=== PATIENT | male | born 1955 | race Caucasian/White ===

== ENCOUNTER → 2024-03-23 | Outpatient (CLI) | payer MEDICARE, BC, SELFPAY ==
[2024-03-23 17:34] LABS: Basophils # (Auto) 0.1 Thou/mm3 (0.0-0.2); Basophils % (Auto) 2 % (0-2.5); Eosinophils # (Auto) 0.2 Thou/mm3 (0.0-0.5); Eosinophils % (Auto) 8 % (0-10); Hematocrit 25.6 % (41.0-53.0); Immature Granulocytes % (Auto) 0 % (0-0); Immature Granulocytes Auto 0.01 Thou/mm3 (0.00-0.00); Lymphocytes # (Auto) 0.7 Thou/mm3 (1.0-4.8); Lymphocytes % (Auto) 28 % (10-50); Mean Corpuscular HGB Conc 32.4 g/dl (31.0-37.0); Mean Corpuscular Hemoglobin 26.2 pg (25.0-35.0); Mean Corpuscular Volume 81 fL (80-100); Monocytes # (Auto) 0.3 Thou/mm3 (0.0-0.8); Monocytes % (Auto) 13 % (0-12); Neutrophils # (Auto) 1.2 Thou/mm3 (1.8-7.7); Neutrophils % (Auto) 49 % (37-80); Nucleated Red Blood Cell % 0 /100 WBC (0); Platelet Count 100 Thou/mm3 (140-440); RDW Standard Deviation 47.2 fL (35.1-43.9); Red Blood Count 3.17 Miln/mm3 (4.50-5.90)
[2024-03-23 17:35] LABS: Hemoglobin 8.3 g/dL (13.5-16.0); White Blood Count 2.5 Thou/mm3 (3.8-10.6)
[2024-03-23 17:50] LABS: Path Review Blood Smear Sent to Pathologist
[2024-03-23 17:51] LABS: Alanine Aminotransferase 17 U/L (10-49); Albumin, Serum 3.8 gm/dL (3.4-4.8); Albumin/Globulin Ratio 1.9 (1.2-2.2); Alkaline Phosphatase 70 U/L (46-116); Anion Gap 5 (7-16); Aspartate Amino Transferase 33 U/L (0-34); BUN/Creatinine Ratio 16 Ratio (12-20); Bilirubin,Total 0.6 mg/dL (0.3-1.2); Blood Urea Nitrogen 14 mg/dL (9-23); Calcium 8.7 mg/dL (8.3-10.6); Calcium (Corrected) 8.9 mg/dL (8.5-10.1); Carbon Dioxide 24.7 mMol/L (20.0-31.0); Chloride 99 mMol/L (98-107); Creatinine (Component) 0.9 mg/dL (0.6-1.3); Glucose 84 mg/dL (74-106); LDH (Lactate Dehydrogenase) 98 U/L (120-246); Osmolality,Calculated 258 (275-295); Potassium 4.5 mMol/L (3.4-5.1); Sodium 129 mMol/L (136-145); Thyroid Stimulating Hormone 1.93 uIU/mL (0.55-4.78); Total Protein 5.8 gm/dL (5.7-8.2); eGFR > 60 See Note
[2024-03-23 17:54] LABS: Vitamin B12 847 pg/mL (211-911)
[2024-03-23 21:53] LABS: Ferritin 5 ng/mL (10.5-307.3); Total Iron Binding Capacity 404 mcg/dL (250-425)
[2024-03-23 22:02] LABS: Iron 31 mcg/dL (65-175); Percent Iron Saturation 7 % (20-55); Unsaturated Iron Binding 373 (225-295)
== END | disposition home or self-care (01) ==
LOC: COPL 16:04
PROVIDERS: PCP Family Medicine; Referring Provider Specialist; Visit Provider Specialist
DX: Z01.89 Encounter for other specified special examinations (principal)
CPT/HCPCS: 36415; 80053; 82607; 82728; 83540; 83550; 83615; 84443; 85025

== ENCOUNTER → 2024-04-21 | Outpatient (CLI) | payer MEDICARE, BC, SELFPAY ==
[2024-04-21 17:43] LABS: Basophils % (Auto) 2 % (0-2.5); Eosinophils # (Auto) 0.1 Thou/mm3 (0.0-0.5); Eosinophils % (Auto) 4 % (0-10); Hematocrit 23.8 % (41.0-53.0); Immature Granulocytes % (Auto) 1 % (0-0); Immature Granulocytes Auto 0.02 Thou/mm3 (0.00-0.00); Immature Reticulocyte Fraction 9.8 % (2.3-13.4); Lymphocytes # (Auto) 0.6 Thou/mm3 (1.0-4.8); Lymphocytes % (Auto) 26 % (10-50); Mean Corpuscular HGB Conc 32.8 g/dl (31.0-37.0); Mean Corpuscular Hemoglobin 26.6 pg (25.0-35.0); Mean Corpuscular Volume 81 fL (80-100); Monocytes # (Auto) 0.3 Thou/mm3 (0.0-0.8); Monocytes % (Auto) 13 % (0-12); Neutrophils # (Auto) 1.2 Thou/mm3 (1.8-7.7); Neutrophils % (Auto) 55 % (37-80); Nucleated Red Blood Cell % 0 /100 WBC (0); Platelet Count 122 Thou/mm3 (140-440); RDW Standard Deviation 48.3 fL (35.1-43.9); Red Blood Count 2.93 Miln/mm3 (4.50-5.90); Reticulocyte % (Auto) 2.2 % (0.5-1.5); Reticulocyte Absolute Auto 63.9 Biln/L (25.0-75.0); Reticulocyte Hgb Content 26.6 pg (28.0-35.0)
[2024-04-21 17:54] LABS: Albumin, Serum 4.1 gm/dL (3.4-4.8); Anion Gap 6 (7-16); BUN/Creatinine Ratio 20 Ratio (12-20); Blood Urea Nitrogen 20 mg/dL (9-23); Calcium 8.8 mg/dL (8.3-10.6); Calcium (Corrected) 8.8 mg/dL (8.5-10.1); Carbon Dioxide 25.6 mMol/L (20.0-31.0); Chloride 95 mMol/L (98-107); Glucose 107 mg/dL (74-106); Osmolality,Calculated 257 (275-295); Phosphorous 3.5 mg/dL (2.4-5.1); Potassium 4.5 mMol/L (3.4-5.1); Sodium 127 mMol/L (136-145); eGFR > 60 See Note
[2024-04-21 18:15] LABS: Hemoglobin 7.8 g/dL (13.5-16.0)
[2024-04-21 18:16] LABS: White Blood Count 2.1 Thou/mm3 (3.8-10.6)
[2024-04-21 18:20] LABS: Ferritin 10 ng/mL (10.5-307.3); Total Iron Binding Capacity 419 mcg/dL (250-425)
[2024-04-21 20:56] LABS: Iron 25 mcg/dL (65-175); Percent Iron Saturation 5 % (20-55); Unsaturated Iron Binding 394 (225-295)
[2024-04-26 06:24] LABS: Erythropoietin (EPO)* 58.4 mIU/mL (2.6-18.5)
== END | disposition home or self-care (01) ==
LOC: COPL 16:21
PROVIDERS: PCP Family Medicine; Referring Provider Specialist; Visit Provider Specialist
DX: D61.818 Other pancytopenia (principal); Z51.11 Encounter for antineoplastic chemotherapy
CPT/HCPCS: 36415; 80069; 82668; 82728; 83540; 83550; 85025; 85046

== ENCOUNTER → 2024-04-27 | Outpatient (CLI) | payer MEDICARE, BC, SELFPAY | END | disposition home or self-care (01) | PROVIDERS: PCP Family Medicine; Referring Provider Nurse Practitioner Family; Visit Provider Nurse Practitioner Family | DX: D61.818 Other pancytopenia (principal) | CPT/HCPCS: 36415; 82784; 84155; 84165 ==

== ENCOUNTER → 2024-04-28 | Outpatient (CLI) | payer MEDICARE, BC, SELFPAY ==
[2024-05-06 03:02] LABS: Albumin 3.5 g/dL (3.8-4.8); Alpha-1-Globulin 0.3 g/dL (0.2-0.3); Alpha-2-Globulin 0.7 g/dL (0.5-0.9); Beta-1-Globulin 0.5 g/dL (0.4-0.6); Beta-2-globulin 0.3 g/dL (0.2-0.5); Gamma Globulin 0.8 g/dL (0.8-1.7); Immunoglobulin A 214 mg/dL (70-320); Immunoglobulin G 897 mg/dL (600-1540)
[2024-05-06 06:16] LABS: Immunoglobulin M 59 mg/dL (50-300); Protein, total, serum 6.2 g/dL (6.1-8.1)
== END | disposition home or self-care (01) ==
LOC: COPL 16:42
PROVIDERS: PCP Nurse Practitioner Family; Referring Provider Nurse Practitioner Family; Visit Provider Nurse Practitioner Family
DX: D61.818 Other pancytopenia (principal)
CPT/HCPCS: 36415; 82784; 84155; 84165

== ENCOUNTER → 2024-05-13 | Outpatient (CLI) | payer MEDICARE, BC, SELFPAY ==
--- NOTE | 2024-05-13 15:39 | XR_ITS ---
Examination: Shoulder,left, 3 views Technique: Shoulder AP internal rotation, AP external rotation, Y view shoulder, 3 views Exam date and time :May 13, 2024 1555 hours INDICATIONS: Onset left shoulder pain beginning 9 months ago. FINDINGS: Moderate osteopenia Advanced narrowing glenohumeral joint No fracture or shoulder dislocation IMPRESSION: Advanced osteoarthritis glenohumeral joint
[2024-05-20 06:29] LABS: Homocysteine* 13.8 umol/L (<11.4); Methylmalonic Acid, GC/MS/MS* 167 nmol/L (69-390)
== END | disposition home or self-care (01) ==
PROVIDERS: PCP Family Medicine; Referring Provider Nurse Practitioner Family; Visit Provider Nurse Practitioner Family
DX: M19.012 Primary osteoarthritis, left shoulder (principal); D64.9 Anemia, unspecified
CPT/HCPCS: 36415; 73030; 83090; 83921

== ENCOUNTER → 2024-06-09 | Outpatient (CLI) | payer MEDICARE, BC, SELFPAY ==
[2024-06-09 16:29] LABS: Basophils % (Auto) 0 % (0-2.5); Eosinophils # (Auto) 0.1 Thou/mm3 (0.0-0.5); Eosinophils % (Auto) 2 % (0-10); Hematocrit 29.2 % (41.0-53.0); Immature Granulocytes % (Auto) 1 % (0-0); Immature Granulocytes Auto 0.03 Thou/mm3 (0.00-0.00); Immature Reticulocyte Fraction 14.3 % (2.3-13.4); Lymphocytes # (Auto) 0.7 Thou/mm3 (1.0-4.8); Lymphocytes % (Auto) 16 % (10-50); Mean Corpuscular HGB Conc 29.8 g/dl (31.0-37.0); Mean Corpuscular Volume 87 fL (80-100); Monocytes # (Auto) 0.6 Thou/mm3 (0.0-0.8); Monocytes % (Auto) 12 % (0-12); Neutrophils # (Auto) 3.3 Thou/mm3 (1.8-7.7); Neutrophils % (Auto) 70 % (37-80); Nucleated Red Blood Cell % 0 /100 WBC (0); Platelet Count 81 Thou/mm3 (140-440); RDW Standard Deviation 52.2 fL (35.1-43.9); Red Blood Count 3.34 Miln/mm3 (4.50-5.90); Reticulocyte % (Auto) 1.5 % (0.5-1.5); Reticulocyte Absolute Auto 50.8 Biln/L (25.0-75.0); Reticulocyte Hgb Content 27.7 pg (28.0-35.0); White Blood Count 4.8 Thou/mm3 (3.8-10.6)
[2024-06-09 16:36] LABS: Hemoglobin 8.7 g/dL (13.5-16.0)
[2024-06-09 17:03] LABS: Alanine Aminotransferase 60 U/L (10-49); Albumin, Serum 3.6 gm/dL (3.4-4.8); Albumin/Globulin Ratio 1.5 (1.2-2.2); Alkaline Phosphatase 66 U/L (46-116); Anion Gap 6 (7-16); Aspartate Amino Transferase 48 U/L (0-34); BUN/Creatinine Ratio 29 Ratio (12-20); Bilirubin,Total 0.5 mg/dL (0.3-1.2); Blood Urea Nitrogen 29 mg/dL (9-23); Calcium 8.6 mg/dL (8.3-10.6); Calcium (Corrected) 8.9 mg/dL (8.5-10.1); Carbon Dioxide 28.6 mMol/L (20.0-31.0); Chloride 105 mMol/L (98-107); Globulin 2.4 gm/dL (2.3-3.5); Glucose 107 mg/dL (74-106); Osmolality,Calculated 285 (275-295); Potassium 4.7 mMol/L (3.4-5.1); Sodium 140 mMol/L (136-145); eGFR > 60 See Note
== END | disposition home or self-care (01) ==
LOC: COPL 15:48
PROVIDERS: PCP Family Medicine; Referring Provider Specialist; Visit Provider Specialist
DX: D61.818 Other pancytopenia (principal)
CPT/HCPCS: 36415; 80053; 85025; 85046

== ENCOUNTER → 2024-06-30 | Outpatient (CLI) | payer MEDICARE, SELFPAY ==
--- NOTE | 2024-06-30 09:30 | XR_ITS ---
Examination: CT abdomen, without intravenous contrast. CT pelvis, without intravenous contrast. CT abdomen, with intravenous contrast. CT pelvis, with intravenous contrast. 2-D sagittal coronal reconstructions. Date and time of exam:June 30, 2024 0947 hours INDICATIONS: Diagnosis pancytopenia 5 months CTDI: vol (mGy) 48.8 DLP: (mGycm) 2628 Technique: Multiple 3.0 axial images of the abdomen and pelvis without intravenous contrast, 3.0 mm slice thickness. Multiple 3.0 postcontrast images abdomen and pelvis also obtained, post intravenous injection 60 cc [id number] 2-D sagittal and coronal reconstructions. Low dose protocols were performed. One or more of the following dose reduction techniques were used; automated exposure control, adjustment of the mA and/or KV according to patient size, use of iterative reconstruction technique. Findings: Atelectasis in the lower lung zones Cirrhosis, liver nodular in contour, no focal liver lesions Tiny gallstones Splenomegaly 16 cm No pancreatic or adrenal mass No renal or ureteral calculi, no hydronephrosis No bowel obstruction 4.4 cm umbilical hernia defect Colonic diverticulosis No pericecal inflammatory change Contracted urinary bladder Transverse prostate dimension 3.4 cm Severe osteopenia with advanced disc narrowing L1-L2 IMPRESSION: Cirrhosis Significant splenomegaly Cholelithiasis Large umbilical hernia defect containing fat
[2024-06-30 09:49] LABS: Basophils % (Auto) 1 % (0-2.5); Eosinophils % (Auto) 2 % (0-10); Hematocrit 27.5 % (41.0-53.0); Immature Granulocytes % (Auto) 0 % (0-0); Immature Granulocytes Auto 0.01 Thou/mm3 (0.00-0.00); Lymphocytes # (Auto) 0.5 Thou/mm3 (1.0-4.8); Lymphocytes % (Auto) 21 % (10-50); Mean Corpuscular HGB Conc 30.2 g/dl (31.0-37.0); Mean Corpuscular Hemoglobin 25.5 pg (25.0-35.0); Mean Corpuscular Volume 85 fL (80-100); Monocytes # (Auto) 0.3 Thou/mm3 (0.0-0.8); Monocytes % (Auto) 10 % (0-12); Neutrophils # (Auto) 1.7 Thou/mm3 (1.8-7.7); Neutrophils % (Auto) 67 % (37-80); Nucleated Red Blood Cell % 0 /100 WBC (0); Platelet Count 89 Thou/mm3 (140-440); RDW Standard Deviation 49.2 fL (35.1-43.9); Red Blood Count 3.25 Miln/mm3 (4.50-5.90)
[2024-06-30 09:57] LABS: Glucose Estimated Average 148 mg/dL (80-131); Hemoglobin A1C 6.8 % Hgb (4.8-6.0)
[2024-06-30 10:04] LABS: Hemoglobin 8.3 g/dL (13.5-16.0); White Blood Count 2.6 Thou/mm3 (3.8-10.6)
[2024-06-30 10:09] LABS: Folate 18.88 ng/mL (>5.38); PSA Medicare Annual Scrn 0.02 ng/mL (0-4.00)
[2024-06-30 10:17] LABS: Alanine Aminotransferase 40 U/L (10-49); Albumin, Serum 3.7 gm/dL (3.4-4.8); Albumin/Globulin Ratio 1.8 (1.2-2.2); Alkaline Phosphatase 64 U/L (46-116); Anion Gap 9 (7-16); Aspartate Amino Transferase 33 U/L (0-34); BUN/Creatinine Ratio 23 Ratio (12-20); Bilirubin,Total 0.6 mg/dL (0.3-1.2); Blood Urea Nitrogen 23 mg/dL (9-23); Calcium 8.9 mg/dL (8.3-10.6); Calcium (Corrected) 9.1 mg/dL (8.5-10.1); Carbon Dioxide 28.1 mMol/L (20.0-31.0); Cardiac Risk Estimate 1.8 RATIO (4.0-6.7); Chloride 106 mMol/L (98-107); Cholesterol 170 mg/dL (132-200); Globulin 2.1 gm/dL (2.3-3.5); Glucose 93 mg/dL (74-106); HDL Cholesterol 92 mg/dL (40-60); LDL Cholesterol,Calculated 69 mg/dL (0-130); Osmolality,Calculated 288 (275-295); Potassium 4.4 mMol/L (3.4-5.1); Sodium 143 mMol/L (136-145); Total Protein 5.8 gm/dL (5.7-8.2); Triglycerides 47 mg/dL (30-150); eGFR > 60 See Note
[2024-07-05 06:31] LABS: Homocysteine* 11.9 umol/L (<11.4); Methylmalonic Acid, GC/MS/MS* 204 nmol/L (69-390)
== END | disposition home or self-care (01) ==
LOC: CCTX 08:11 → COPL 08:45
PROVIDERS: PCP Family Medicine; Referring Provider Specialist; Visit Provider Radiology Diagnostic Radiology
DX: K74.60 Unspecified cirrhosis of liver (principal); R16.1 Splenomegaly, not elsewhere classified; K80.20 Calculus of gallbladder without cholecystitis without obstruction; K42.9 Umbilical hernia without obstruction or gangrene; D52.9 Folate deficiency anemia, unspecified; I10 Essential (primary) hypertension; E11.9 Type 2 diabetes mellitus without complications; Z12.5 Encounter for screening for malignant neoplasm of prostate
CPT/HCPCS: 36415; 74178; 80053; 80061; 82746; 83036; 83090; 83921; 84153; 84443; 85025; A4649; Q9967; G0103

== ENCOUNTER → 2024-08-02 | Outpatient (CLI) | payer MEDICARE, SELFPAY ==
[2024-08-02 16:58] LABS: Basophils % (Auto) 1 % (0-2.5); Eosinophils # (Auto) 0.1 Thou/mm3 (0.0-0.5); Eosinophils % (Auto) 5 % (0-10); Hematocrit 28.8 % (41.0-53.0); Hemoglobin 8.9 g/dL (13.5-16.0); Immature Granulocytes % (Auto) 1 % (0-0); Immature Granulocytes Auto 0.03 Thou/mm3 (0.00-0.00); Lymphocytes # (Auto) 0.5 Thou/mm3 (1.0-4.8); Lymphocytes % (Auto) 19 % (10-50); Mean Corpuscular HGB Conc 30.9 g/dl (31.0-37.0); Mean Corpuscular Hemoglobin 25.9 pg (25.0-35.0); Mean Corpuscular Volume 84 fL (80-100); Monocytes # (Auto) 0.3 Thou/mm3 (0.0-0.8); Monocytes % (Auto) 9 % (0-12); Neutrophils # (Auto) 1.8 Thou/mm3 (1.8-7.7); Neutrophils % (Auto) 65 % (37-80); Nucleated Red Blood Cell % 0 /100 WBC (0); Platelet Count 92 Thou/mm3 (140-440); RDW Standard Deviation 51.9 fL (35.1-43.9); Red Blood Count 3.43 Miln/mm3 (4.50-5.90)
[2024-08-02 17:04] LABS: White Blood Count 2.8 Thou/mm3 (3.8-10.6)
== END | disposition home or self-care (01) ==
LOC: COPL 16:08
PROVIDERS: PCP Family Medicine; Referring Provider Specialist; Visit Provider Specialist
DX: D61.818 Other pancytopenia (principal)
CPT/HCPCS: 36415; 85025

== ENCOUNTER → 2024-09-21 | Outpatient (CLI) | payer MEDICARE, BC, SELFPAY ==
[2024-09-21 13:42] LABS: Basophils % (Auto) 0 % (0-2.5); Eosinophils # (Auto) 0.1 Thou/mm3 (0.0-0.5); Eosinophils % (Auto) 2 % (0-10); Hematocrit 34.5 % (41.0-53.0); Immature Granulocytes % (Auto) 1 % (0-0); Immature Granulocytes Auto 0.06 Thou/mm3 (0.00-0.00); Immature Reticulocyte Fraction 12.1 % (2.3-13.4); Lymphocytes # (Auto) 0.5 Thou/mm3 (1.0-4.8); Lymphocytes % (Auto) 9 % (10-50); Mean Corpuscular HGB Conc 31.9 g/dl (31.0-37.0); Mean Corpuscular Hemoglobin 28.1 pg (25.0-35.0); Mean Corpuscular Volume 88 fL (80-100); Monocytes # (Auto) 0.4 Thou/mm3 (0.0-0.8); Monocytes % (Auto) 8 % (0-12); Neutrophils # (Auto) 4.6 Thou/mm3 (1.8-7.7); Neutrophils % (Auto) 80 % (37-80); Nucleated Red Blood Cell % 0 /100 WBC (0); Platelet Count 92 Thou/mm3 (140-440); RDW Standard Deviation 52.3 fL (35.1-43.9); Red Blood Count 3.92 Miln/mm3 (4.50-5.90); Reticulocyte % (Auto) 1.4 % (0.5-1.5); Reticulocyte Absolute Auto 55.7 Biln/L (25.0-75.0); Reticulocyte Hgb Content 34.6 pg (28.0-35.0); White Blood Count 5.8 Thou/mm3 (3.8-10.6)
[2024-09-21 13:58] LABS: Ferritin 55 ng/mL (10.5-307.3); Iron 53 mcg/dL (65-175); Total Iron Binding Capacity 366 mcg/dL (250-425)
== END | disposition home or self-care (01) ==
LOC: COPL 13:06
PROVIDERS: PCP Family Medicine; Referring Provider Specialist; Visit Provider Specialist
DX: Z51.11 Encounter for antineoplastic chemotherapy (principal)
CPT/HCPCS: 36415; 82728; 83540; 83550; 85025; 85046

== ENCOUNTER → 2025-01-25 | Outpatient (CLI) | payer MEDICARE, SELFPAY ==
--- NOTE | 2025-01-25 11:01 | EKG_ITS ---
[facility] Test Date: 2025-01-25 Pat Name: MATT CASTLE Department: Room: - Gender: Male Field Services Analyst: ANNABEL : 1955 Requested By: Margarita Vizcaino Order Number: [id number] Reading MD: Margarita Vizcaino Measurements Intervals [place] Rate: 65 P: -64 OR: 145 QRS: -33 QRSD: 117 T: 29 QT: 414 QTc: 431 Interpretive Statements ECTOPIC ATRIAL RHYTHM MARKED LEFT AXIS DEVIATION [QRS AXIS < -30] LOW QRS VOLTAGE IN PRECORDIAL LEADS [QRS DEFLECTION < 1.0 mV IN CHEST LEADS] POSSIBLE ANTERIOR MYOCARDIAL INFARCTION , PROBABLY OLD [30 ms Q WAVE IN V3/V4, OR R < 0.2 mV IN V4] Compared to ECG 08/24/2023 12:11:47 Ectopic atrial rhythm now present Left-axis deviation now present Low QRS voltage now present Myocardial infarct finding now present Sinus bradycardia no longer present Ventricular premature complex(es) no longer present Intraventricular conduction delay no longer present T-wave abnormality no longer present /store/S0/[id number].pdf
[2025-01-25 11:15] LABS: Basophils # (Auto) 0.1 Thou/mm3 (0.0-0.2); Basophils % (Auto) 2 % (0-2.5); Eosinophils # (Auto) 0.2 Thou/mm3 (0.0-0.5); Eosinophils % (Auto) 5 % (0-10); Hematocrit 36.3 % (41.0-53.0); Hemoglobin 11.6 g/dL (13.5-16.0); Immature Granulocytes Auto 0.02 Thou/mm3 (0.00-0.00); Lymphocytes # (Auto) 0.7 Thou/mm3 (1.0-4.8); Lymphocytes % (Auto) 20 % (10-50); Mean Corpuscular HGB Conc 32.0 g/dl (31.0-37.0); Mean Corpuscular Hemoglobin 29.7 pg (25.0-35.0); Mean Corpuscular Volume 93 fL (80-100); Monocytes # (Auto) 0.3 Thou/mm3 (0.0-0.8); Monocytes % (Auto) 10 % (0-12); Neutrophils # (Auto) 2.2 Thou/mm3 (1.8-7.7); Neutrophils % (Auto) 64 % (37-80); Nucleated Red Blood Cell # 0.00 Thou/mm3 (0.00-0.00); Nucleated Red Blood Cell % 0 /100 WBC (0); Platelet Count 83 Thou/mm3 (140-440); RDW Standard Deviation 48.5 fL (35.1-43.9); Red Blood Count 3.90 Miln/mm3 (4.50-5.90); White Blood Count 3.4 Thou/mm3 (3.8-10.6)
[2025-01-25 11:22] LABS: Glucose Estimated Average 134 mg/dL (80-131); Hemoglobin A1C 6.3 % Hgb (4.8-6.0)
[2025-01-25 11:37] LABS: Alanine Aminotransferase 17 U/L (10-49); Albumin, Serum 3.6 gm/dL (3.4-4.8); Albumin/Globulin Ratio 1.6 (1.2-2.2); Alkaline Phosphatase 65 U/L (46-116); Anion Gap 9 (7-16); Aspartate Amino Transferase 27 U/L (0-34); BUN/Creatinine Ratio 10 Ratio (12-20); Bilirubin,Total 1.5 mg/dL (0.3-1.2); Blood Urea Nitrogen 9 mg/dL (9-23); Calcium 9.1 mg/dL (8.3-10.6); Calcium (Corrected) 9.4 mg/dL (8.5-10.1); Carbon Dioxide 30.1 mMol/L (20.0-31.0); Chloride 106 mMol/L (98-107); Creatinine (Component) 0.9 mg/dL (0.6-1.3); Globulin 2.2 gm/dL (2.3-3.5); Glucose 114 mg/dL (74-106); Osmolality,Calculated 288 (275-295); Potassium 4.0 mMol/L (3.4-5.1); Sodium 145 mMol/L (136-145); Total Protein 5.8 gm/dL (5.7-8.2); eGFR > 60 See Note
== END | disposition home or self-care (01) ==
PROVIDERS: PCP Internal Medicine; Referring Provider Orthopaedic Surgery; Visit Provider Specialist
DX: Z13.1 Encounter for screening for diabetes mellitus (principal); Z01.818 Encounter for other preprocedural examination; Z01.812 Encounter for preprocedural laboratory examination; Z01.810 Encounter for preprocedural cardiovascular examination; D61.818 Other pancytopenia
CPT/HCPCS: 36415; 80053; 83036; 85025; 93005

== ENCOUNTER 2025-04-07 19:55 | Emergency (ER) | payer MEDICARE, BC, SELFPAY ==
[2025-04-07 19:57] VITALS: BP 118/65; PULSE 80; RESP 19; TEMP 37.7; O2SAT 96
[2025-04-07 19:58] VITALS: PULSE 81; RESP 16; O2SAT 95; BMI 39.6
--- NOTE | 2025-04-07 20:08 | XR_ITS ---
Examination: Shoulder, left, 3 views Technique: Shoulder AP internal rotation, AP external rotation, Y view shoulder, 3 views Exam date and time : March 30, 2025, 2112 hours INDICATION: Ground-level fall today with injury of the shoulder, shoulder pain. FINDINGS: Reverse left shoulder arthroplasty. No shoulder dislocation No fracture noted IMPRESSION: Left shoulder arthroplasty, no fracture noted
--- NOTE | 2025-04-07 20:08 | XR_ITS ---
Examination: CT brain head without contrast. 2-D sagittal coronal reconstructions Date and time of exam: March 30, 2025, 2036 hours INDICATIONS: Ground-level fall today with injury of the head, head pain PSO. CTDI: vol (mGy): 56 DLP: (mGycm): 1196 Technique: Multiple CT axial sections of the brain have been obtained, 5 mm slice thickness. Contrast has not been administered. 2-D sagittal, coronal reconstructions have been obtained Low dose protocols were performed. One or more of the following dose reduction techniques were used; automated exposure control, adjustment of the mA and/or KV according to patient size, use of iterative reconstruction technique. Findings: No significant ventricular enlargement. Intra-axial or extra-axial hemorrhage density is not seen. No mass effect or midline shift Basal cisterns are not remarkable. Fourth ventricle is midline. Cranial vault intact. Impression: Negative for acute hemorrhage, mass effect or midline shift
--- NOTE | 2025-04-07 20:09 | EKG_ITS ---
[facility] Test Date: 2025-04-07 Pat Name: MATT CASTLE Department: Room: - Gender: Male Dog Bather: : 1955 Requested By: Marianela Betancourt Order Number: [id number] Reading MD: Marianela Betancourt Measurements Intervals [place] Rate: 78 P: 80 IL: 203 QRS: -9 QRSD: 116 T: 54 QT: 415 QTc: 475 Interpretive Statements SINUS RHYTHM LOW QRS VOLTAGE IN PRECORDIAL LEADS [QRS DEFLECTION < 1.0 mV IN CHEST LEADS] MODERATE INTRAVENTRICULAR CONDUCTION DELAY [110+ ms QRS DURATION] NONSPECIFIC ST & T-WAVE ABNORMALITY Compared to ECG 01/25/2025 11:05:33 Intraventricular conduction delay now present T-wave abnormality now present Ectopic atrial rhythm no longer present Left-axis deviation no longer present Myocardial infarct finding no longer present /store/S0/[id number]/ecg/[id number].pdf
[2025-04-07] MEDS: MECLIZINE HCL 25 MG TABLET 50 MG PO (20:16)
[2025-04-07] MEDS: RINGERS LACTATED 1000 ML 1,000 ML 999 ML IV (20:16)
[2025-04-07 20:26] VITALS: BP 139/100; PULSE 99; RESP 18; TEMP 38.4; O2SAT 95
[2025-04-07 20:43] LABS: Hematocrit 35.2 % (41.0-53.0); Hemoglobin 11.5 g/dL (13.5-16.0); Mean Corpuscular Hemoglobin 30.2 pg (25.0-35.0); Mean Corpuscular Volume 92 fL (80-100); Red Blood Count 3.81 Miln/mm3 (4.50-5.90); White Blood Count 4.8 Thou/mm3 (3.8-10.6)
[2025-04-07 20:44] LABS: Basophils # (Auto) 0.1 Thou/mm3 (0.0-0.2); Basophils % (Auto) 1 % (0-2.5); Eosinophils # (Auto) 0.1 Thou/mm3 (0.0-0.5); Eosinophils % (Auto) 2 % (0-10); Immature Granulocytes Auto 0.03 Thou/mm3 (0.00-0.00); Lymphocytes # (Auto) 0.6 Thou/mm3 (1.0-4.8); Lymphocytes % (Auto) 12 % (10-50); Mean Corpuscular HGB Conc 32.7 g/dl (31.0-37.0); Monocytes # (Auto) 0.6 Thou/mm3 (0.0-0.8); Monocytes % (Auto) 11 % (0-12); Neutrophils # (Auto) 3.5 Thou/mm3 (1.8-7.7); Neutrophils % (Auto) 73 % (37-80); Nucleated Red Blood Cell # 0.00 Thou/mm3 (0.00-0.00); Nucleated Red Blood Cell % 0 /100 WBC (0); Platelet Count 157 Thou/mm3 (140-440); RDW Standard Deviation 49.9 fL (35.1-43.9)
--- NOTE | 2025-04-07 20:48 | PD.EDFALL ---
ED Fall Injury RME/HPI General Chief Complaint: Extremity Injury, Upper Stated Complaint: DIZZINESS, FALL Time Seen by Provider: 04/07/25 20:07 Arrival date/time: 04/07/25 19:55 69-year-old male patient with significant history of hypertension, diabetes mellitus, chronic vertigo, came in for evaluation regarding sudden onset of worsening vertigo, dizziness, and patient fell. Patient landed on the carpet hitting his left shoulder, and head. Patient complaining of pain to the left shoulder. Patient denies any neck pain. Denies any LOC no nausea no vomiting. Denies any other complaints. No medication was taken prior to ER visit. Related Data Home Medications ?Medication ?Instructions ?Recorded ?Confirmed atorvastatin 20 mg tablet 20 mg PO QDAY 12/22/22 08/24/23 lisinopril 10 mg tablet 10 mg PO QDAY 12/22/22 08/24/23 metformin 500 mg tablet 500 mg PO QDAY 12/22/22 08/24/23 Previous Rx's ?Medication ?Instructions ?Recorded acetaminophen 300 mg-codeine 30 mg 1 tab PO Q8H PRN pain #20 tabs 04/07/25 tablet scopolamine base 1 mg over 3 days 1 mg topical .Q3Days #10 ea 04/07/25 transdermal patch sennosides 8.6 mg-docusate sodium 1 tab-cap PO QDAY PRN constipation 04/07/25 50 mg tablet (Colace 2-In-1) #20 tabs Allergies Allergy/AdvReac Type Severity Reaction Status Date / Time hydrocodone Allergy Severe I VOMIT Verified 04/07/25 19:58 LIKE CRAZY PER PT Review of Systems Review of Systems Narrative Review of Systems: Review of system reviewed and within normal limits except mentioned in HPI ED Exam Narrative Physical exam: VITAL SIGNS: Reviewed. GENERAL APPEARANCE: Alert and interactive, follows commands, no acute distress, HEAD AND FACE: Non-traumatic. ENT: PERRL, pink conjunctivitis, eyelid no trauma, Mucous membrane moist. NECK: Supple, nontender, no nuchal rigidity. CHEST: No tenderness, no crepitus, no paradoxical movement, no retractions. LUNGS: Clear, well ventilated, symmetric, no rales, no wheezing, no ronchi, no stridor, good breath sounds bilaterally. HEART: Regular rate, regular rhythm, no murmur, no gallops. ABDOMEN: Soft, positive bowel sounds, nondistended, no guarding, nontender, no rebound, no masses, RECTAL: Deferred. GENITAL: Deferred. NEUROLOGICAL: Gross motor function intact sensory function intact, Appropriate for age. MUSCULOSKELETAL: low back nontender, full range of motion. EXTREMITIES: Left shoulder tenderness, with limitation range of motion. No deformity noted, distal neurovascular status intact SKIN: Color pink, dry, no rash, no lacerations, no abrasions, no contusions. LYMPHATICS: Deferred. Course Quality Measures none Orders Category Date Time Status Bedside Blood Glucose NOW Care 04/07/25 20:11 Active EKG (ED ONLY) *Do not use* NOW Care 04/07/25 20:09 Completed sling [Splint / Immobilizer] STAT Care 04/07/25 22:[address] head/brain wo con Stat Exams 04/07/25 20:08 Completed EKG (ED Only) Stat Exams 04/07/25 20:09 Draft XR shoulder LT min 2V Stat Exams 04/07/25 20:08 Completed B-Type Natriuretic Peptide Stat Lab 04/07/25 20:20 Completed CBC Stat Lab 04/07/25 20:20 Completed Comprehensive Metabolic Panel Stat Lab 04/07/25 20:20 Completed Partial Thromboplastin Time Stat Lab 04/07/25 20:20 Completed Troponin I Stat Lab 04/07/25 20:20 Completed ACETAMINOPHEN w/COD 300-30 [Tylenol w/Cod #3] Med 04/07/25 22:39 Discontinued 1 tab PO X1 ONE Meclizine HCl [Antivert] Med 04/07/25 20:08 Discontinued 50 mg PO X1 ONE Ringers Lactated 1000 ml [Lactated Ringers] 1,000 ml Med 04/07/25 20:08 Discontinued IV 999 mls/hr Vital Signs Vital signs: Vital Signs Temperature 99.8 F 04/07/25 19:57 Pulse Rate 80 04/07/25 19:57 Respiratory Rate 19 04/07/25 19:57 Blood Pressure 118/65 04/07/25 19:57 Pulse Oximetry (%) 96 04/07/25 19:57 Oxygen Delivery Method Room Air 04/07/25 19:57 Fall MDM Narrative MDM Narrative:: 69-year-old male patient with significant history of hypertension, diabetes mellitus, chronic vertigo, came in for evaluation regarding sudden onset of worsening vertigo, dizziness, and patient fell. Patient landed on the carpet hitting his left shoulder, and head. Patient complaining of pain to the left shoulder. Patient denies any neck pain. Denies any LOC no nausea no vomiting. Denies any other complaints. No medication was taken prior to ER visit. EKG showed sinus rhythm, ventricular rate of 78 bpm, no ST segment elevation depression noted. Patient's laboratory workup showed slight anemia of 11.5 no leukocytosis CMP unremarkable. X-ray of the shoulder showed no acute abnormality noted, intact hardware, CT scan of the head showed no acute pathology noted. Patient was placed on an arm sling. Was given IV fluids, Victor with significant improvement of pain. Stable for discharge home Patient data External records reviewed:: None Clinical information provided by:: patient Social determinants that could affect healthcare access:: none Patient has the following chronic illnesses:: Chronic vertigo How is presenting disease/condition affected by chronic disease/condition?: exacerbated by Evaluation data The following diagnostics were reviewed and interpreted by me:: lab results, radiology exam(s) and EKG tracing(s) Lab and/or radiology exams considered but not ordered:: None Interpretation Summary: See above Medications / Prescriptions Medications or Prescriptions considered but not ordered:: None Medication administrations:: Medication Administration History Discontinued Medications Acetaminophen/Codeine Phosphate (Acetaminophen W/Cod 300-30 Tablet) 1 tab PO X1 ONE Stop: 04/07/25 22:40 Last Admin: 04/07/25 22:46 Dose: 1 tab Documented By: MILA Lactated Ringer's (Lactated Ringers) 1,000 mls @ 999 mls/hr IV .Q1H1M ONE Stop: 04/07/25 21:08 Last Admin: 04/07/25 20:16 Dose: 999 mls/hr Documented By: NANDINI Meclizine HCl (Meclizine Hcl 25 Mg Tablet) 50 mg PO X1 ONE Stop: 04/07/25 20:09 Last Admin: 04/07/25 20:16 Dose: 50 mg Documented By: NANDINI IV fluids, Tylenol with codeine, meclizine Consultations Consultation(s) initiated? (list below): No Diagnosis Fall Differential Diagnosis: other (Dizziness, chronic vertigo, fall, left shoulder pain,) Most likely diagnosis given after review of the tests above:: Left shoulder pain, chronic medical Admission Indicated Admission indicated?: not indicated Admission Request Was there a request for admission?: No Disposition Plan Disposition Plan: Discharge Discharge Attestation Discharge Attestation: The patient was given an opportunity to ask questions and understood the discharge instructions. Discharge instructions specifically effects, indications for sooner follow up or return to the emergency department, and the expected course of current diagnosis. Patient condition: Stable Discharge Plan Plan Patient Disposition: HOME (Self Care) Discharge Disposition comment: stable Prescriptions/Referrals Prescriptions/Med Rec: New acetaminophen-codeine 300-30 mg tablet 1 tab PO Q8H PRN (Reason: pain) Qty: 20 0RF sennosides-docusate sodium [Colace 2-In-1] 8.6-50 mg tablet 1 tab-cap PO QDAY PRN (Reason: constipation) Qty: 20 0RF scopolamine base 1 mg over 3 days patch 3 day 1 mg topical .Q3Days Qty: 10 0RF No Action metformin 500 mg tablet 500 mg PO QDAY Patient Comments: TAKE 1 TABLET BY MOUTH TWICE A DAY WITH MEALS atorvastatin 20 mg tablet 20 mg PO QDAY Patient Comments: TAKE 1 TABLET BY MOUTH EVERY DAY FOR CHOLESTEROL lisinopril 10 mg tablet 10 mg PO QDAY Patient Comments: TAKE 1 TABLET BY MOUTH EVERY DAY Referrals: Gautam Gaxiola [Primary Care Provider] - In 1 week Problem List Clinical Impression: Vertigo, Fall, Left shoulder pain Patient/Caregiver Discharge Instructions Discharge Activity: activity as tolerated Education Materials: Understanding the Pain Response, Vertigo Medicine Tx Additional Instructions: Thank you for the opportunity for serving you today. You are stable for discharged . You are advised to: Follow-up with your PCP in 1 to 2 days Return to ED for worsening of symptoms Increase oral fluids Take medication as prescribed Wear your arm sling as needed Print Language: Beninese Stand Alone Forms: Haylee Award Info., Patient Portal Info Letter PA/IT AUDITOR Supervising Physician PA/JAJA Supervising Physician: Dr Schultz
[2025-04-07 20:52] LABS: Partial Thromboplastin Time 34.2 Seconds (22.0-36.0)
[2025-04-07 20:55] LABS: Alanine Aminotransferase < 7 U/L (10-49); Albumin, Serum 3.3 gm/dL (3.4-4.8); Albumin/Globulin Ratio 1.3 (1.2-2.2); Alkaline Phosphatase 103 U/L (46-116); Anion Gap 10 (7-16); Aspartate Amino Transferase 14 U/L (0-34); BUN/Creatinine Ratio 7 Ratio (12-20); Bilirubin,Total 1.3 mg/dL (0.3-1.2); Blood Urea Nitrogen 6 mg/dL (9-23); Calcium 8.8 mg/dL (8.3-10.6); Calcium (Corrected) 9.4 mg/dL (8.5-10.1); Carbon Dioxide 25.1 mMol/L (20.0-31.0); Chloride 103 mMol/L (98-107); Creatinine (Component) 0.9 mg/dL (0.6-1.3); Estimated Creatinine Clearance 103.0 mL/min (>60); Globulin 2.5 gm/dL (2.3-3.5); Glucose 107 mg/dL (74-106); Osmolality,Calculated 273 (275-295); Potassium 3.5 mMol/L (3.4-5.1); Sodium 138 mMol/L (136-145); Total Protein 5.8 gm/dL (5.7-8.2); Troponin I < 0.002 ng/mL (0.0-0.045); eGFR > 60 See Note
[2025-04-07 21:05] LABS: B-Type Natriuretic Peptide 47 pg/mL (0-100)
[2025-04-07 21:36] VITALS: BP 131/57; PULSE 74; RESP 16; TEMP 37.3; O2SAT 95
[2025-04-07] MEDS: ACETAMINOPHEN w/COD 300-30 TABLET 1 TAB PO (22:46)
== END 2025-04-07 23:44 | disposition home or self-care (01) ==
PROVIDERS: Nurse Practitioner Family; Emergency Provider Emergency Medicine; PCP Internal Medicine
DX: S49.92XA Unspecified injury of left shoulder and upper arm, initial encounter (principal); S09.90XA Unspecified injury of head, initial encounter; I45.89 Other specified conduction disorders; W18.30XA Fall on same level, unspecified, initial encounter
CPT/HCPCS: 36415; 70450; 73030; 80053; 81001; 83880; 84484; 85025; 85730; 93005; 96360; 96361; 99284; A4565; J7120; A9270